=== PATIENT | male | born 1990 | race African-American/Black ===

== ENCOUNTER 2023-08-21 08:43 | Emergency (ER) | payer MEDICAID ==
[~2023-08-21] VITALS: Ht 175.3 cm; Wt 122.5 kg
[2023-08-21 08:50] VITALS: TEMP 98.2; O2SAT 99
[2023-08-21] MEDS: MORPHINE SULFATE 4 MG/ML INJ (FOR IV/IM USE) IV ONE (09:33)
[2023-08-21 09:34] LABS: DIFFERENTIAL COMMENT 0; EOSINOPHILS % 2.1 % (0.0-5.0); HEMATOCRIT. 38.1 % (42.0-52.0); HEMOGLOBIN. 12.5 g/dL (14.0-18.0); MEAN CORPUSCULAR HEMOGLOBIN 25.3 pg (28.0-32.0); MEAN CORPUSCULAR HGB CONC 32.9 g/dL (31.0-37.0); MEAN PLATELET VOLUME 8.5 fl (7.4-10.4); MONOCYTES % 8.5 % (2.0-8.0); NEUTROPHILS % 53.4 % (40.0-76.0); PLATELET 131 x1000/uL (130-400); RED BLOOD CELL COUNT 4.94 mill/uL (4.7-6.1); RED CELL DISTRIBUTION WIDTH 17.9 % (11.6-14.6); WHITE BLOOD COUNT 4.9 x1000/uL (4.5-11.0)
[2023-08-21 09:42] LABS: CHLORIDE 106 mEq/L (98-107); POTASSIUM 4.8 mEq/L (3.5-5.1); SODIUM 139 mEq/L (136-145)
[2023-08-21 09:43] LABS: CARBON DIOXIDE 25 mEq/L (21-32)
[2023-08-21 09:44] LABS: CALCIUM 9.5 mg/dL (8.7-10.4)
[2023-08-21] MEDS: HYDROMORPHONE HCL/PF 2MG/ML CPJ IV ONE (09:45)
[2023-08-21] MEDS ORDERED: HYDROMORPHONE HCL/PF 2MG/ML CPJ IV ONE (09:45)
[2023-08-21 09:48] LABS: CREATININE 0.8 mg/dL (0.6-1.3); GLUCOSE 102 mg/dL (70-105)
[2023-08-21 09:49] LABS: UREA NITROGEN BLOOD 8 mg/dL (9-23)
[2023-08-21 09:50] LABS: TROPONIN I HIGH SENSITIVITY 4 ng/L (3.0-53)
[2023-08-21] MEDS: SODIUM CHLORIDE 0.9% 1,000 ML IV ONE (10:23)
[2023-08-21] MEDS: DIPHENHYDRAMINE 50MG/ML VIAL IV ONE (10:23)
[2023-08-21 10:59] VITALS: BP 172/128; PULSE 76; RESP 15
== END 2023-08-21 11:35 | disposition home or self-care (01) ==
LOC: ER 08:43
DX: D57.00 Hb-SS disease with crisis, unspecified (principal); I49.9 Cardiac arrhythmia, unspecified; Z98.890 Other specified postprocedural states; Z88.8 Allergy status to other drugs, medicaments and biological substances; Z88.5 Allergy status to narcotic agent
CPT/HCPCS: 99285; 96374; 96375; 71045; 96361; 80048; 85025; 85044; 86850; 86900; 86901; 84484; 36415; 93005; J1200; J1170; J2270; J7030

== ENCOUNTER 2023-11-03 11:27 | Emergency (ER) | payer MEDICAID ==
[~2023-11-03] VITALS: Ht 175.3 cm; Wt 122.0 kg
[2023-11-03 11:36] VITALS: PULSE 82
[2023-11-03 11:38] VITALS: BP 171/123; RESP 16; TEMP 98.3; O2SAT 100
[2023-11-03 12:10] LABS: BASOPHILS % 0.7 % (0.0-2.0); DIFFERENTIAL COMMENT 0; EOSINOPHILS % 2.3 % (0.0-5.0); HEMATOCRIT. 37.9 % (42.0-52.0); LYMPHOCYTES % 36.3 % (20.0-50.0); MEAN CORPUSCULAR HEMOGLOBIN 24.6 pg (28.0-32.0); MEAN CORPUSCULAR HGB CONC 31.7 g/dL (31.0-37.0); MEAN CORPUSCULAR VOLUME 77.8 fL (80.0-94.0); MEAN PLATELET VOLUME 8.6 fl (7.4-10.4); MONOCYTES % 6.7 % (2.0-8.0); PLATELET 114 x1000/uL (130-400); RED BLOOD CELL COUNT 4.87 mill/uL (4.7-6.1); RED CELL DISTRIBUTION WIDTH 18.6 % (11.6-14.6); WHITE BLOOD COUNT 4.6 x1000/uL (4.5-11.0)
[2023-11-03 12:21] LABS: CHLORIDE 110 mEq/L (98-107); POTASSIUM 3.7 mEq/L (3.5-5.1); SODIUM 140 mEq/L (136-145)
[2023-11-03 12:22] LABS: CARBON DIOXIDE 26 mEq/L (21-32)
[2023-11-03 12:27] LABS: CREATININE 0.8 mg/dL (0.6-1.3); GLUCOSE 127 mg/dL (70-105); UREA NITROGEN BLOOD 6 mg/dL (9-23)
[2023-11-03] MEDS ORDERED: MORPHINE SULFATE 4 MG/ML INJ (FOR IV/IM USE) IV STA (15:26)
[2023-11-03] MEDS ORDERED: ONDANSETRON HCL 4MG/2ML INJ IV STA (15:26)
[2023-11-03] MEDS ORDERED: SODIUM CHLORIDE 0.9% 1,000 ML IV ONE (15:30)
[2023-11-03] MEDS ORDERED: HYDRALAZINE 20MG/ML VIAL IV ONE (15:30)
== END 2023-11-03 15:41 | disposition left against medical advice (07) ==
LOC: ER 11:27
DX: D57.819 Other sickle-cell disorders with crisis, unspecified (principal); I10 Essential (primary) hypertension; Z98.890 Other specified postprocedural states; Z88.8 Allergy status to other drugs, medicaments and biological substances; Z88.6 Allergy status to analgesic agent
CPT/HCPCS: 99283; 80048; 85025; 85044; 36415; J7030

== ENCOUNTER 2023-12-28 10:40 | Emergency (ER) | payer MEDICAID ==
[~2023-12-28] VITALS: Ht 182.9 cm; Wt 130.0 kg
[2023-12-28 10:47] VITALS: O2SAT 99
[2023-12-28] MEDS: DEXT 5%/0.45% NACL 1000ML 1,000 ML IV ONE (11:00)
[2023-12-28 11:29] LABS: BASOPHILS % 0.9 % (0.0-2.0); DIFFERENTIAL COMMENT 0; EOSINOPHILS % 1.7 % (0.0-5.0); HEMATOCRIT. 37.2 % (42.0-52.0); HEMOGLOBIN. 11.8 g/dL (14.0-18.0); LYMPHOCYTES % 33.1 % (20.0-50.0); MEAN CORPUSCULAR HEMOGLOBIN 23.8 pg (28.0-32.0); MEAN CORPUSCULAR HGB CONC 31.8 g/dL (31.0-37.0); MEAN PLATELET VOLUME 8.5 fl (7.4-10.4); NEUTROPHILS % 57.3 % (40.0-76.0); PLATELET 118 x1000/uL (130-400); RED BLOOD CELL COUNT 4.96 mill/uL (4.7-6.1); RED CELL DISTRIBUTION WIDTH 19.6 % (11.6-14.6); WHITE BLOOD COUNT 4.8 x1000/uL (4.5-11.0)
[2023-12-28 11:36] LABS: CHLORIDE 106 mEq/L (98-107); SODIUM 138 mEq/L (136-145)
[2023-12-28 11:37] LABS: CALCIUM 9.8 mg/dL (8.7-10.4); CARBON DIOXIDE 27 mEq/L (21-32)
[2023-12-28 11:42] LABS: CREATININE 0.8 mg/dL (0.6-1.3); GLUCOSE 101 mg/dL (70-105); UREA NITROGEN BLOOD 6 mg/dL (9-23)
[2023-12-28 11:44] LABS: ALANINE AMINOTRANSFERASE 22 IU/L (10-49); ALBUMIN 4.7 g/dL (3.2-4.8); ASPARTATE AMINOTRANSFERASE 29 IU/L (<34); BILIRUBIN TOTAL 0.9 mg/dL (0.1-1.0)
[2023-12-28 11:45] LABS: PROTEIN TOTAL 8.2 g/dL (6.0-8.3)
[2023-12-28] MEDS: HYDROMORPHONE HCL/PF 2MG/ML INJ IV ONE (12:39)
[2023-12-28] MEDS: DIPHENHYDRAMINE 50MG/ML VIAL IV ONE (12:39)
[2023-12-28] MEDS: HYDROMORPHONE HCL/PF 1MG/ML INJ IV NR ×3 (13:24→13:50)
[2023-12-28] MEDS ORDERED: HYDROMORPHONE HCL/PF 2MG/ML INJ IV ONE (13:30)
[2023-12-28 14:53] VITALS: BP 148/88; PULSE 70; RESP 15; TEMP 36.78072; O2SAT 99
== END 2023-12-28 15:02 | disposition home or self-care (01) ==
LOC: ER 10:40
DX: D57.00 Hb-SS disease with crisis, unspecified (principal); M25.551 Pain in right hip; Z88.8 Allergy status to other drugs, medicaments and biological substances; Z88.5 Allergy status to narcotic agent; Z88.6 Allergy status to analgesic agent; Z98.890 Other specified postprocedural states
CPT/HCPCS: 80053; 85025; 85044; 86850; 86900; 86901; 36415; 73502; 96361; 96374; 96375; 96376; 99284; J1200; J1170; Z7610 ×2

== ENCOUNTER 2023-12-29 13:59 | Emergency (ER) | payer MEDICAID ==
[~2023-12-29] VITALS: Ht 175.3 cm; Wt 122.0 kg
[2023-12-29 14:04] VITALS: TEMP 98.4; O2SAT 99
[2023-12-29 14:05] VITALS: O2SAT 99
[2023-12-29] MEDS: DEXT 5%/0.45% NACL 1000ML 1,000 ML IV ONE (14:30)
[2023-12-29 14:39] LABS: BASOPHILS % 0.5 % (0.0-2.0); DIFFERENTIAL COMMENT 0; EOSINOPHILS % 2.1 % (0.0-5.0); HEMATOCRIT. 37.2 % (42.0-52.0); HEMOGLOBIN. 11.7 g/dL (14.0-18.0); LYMPHOCYTES % 31.7 % (20.0-50.0); MEAN CORPUSCULAR HEMOGLOBIN 23.7 pg (28.0-32.0); MEAN CORPUSCULAR HGB CONC 31.5 g/dL (31.0-37.0); MEAN CORPUSCULAR VOLUME 75.1 fL (80.0-94.0); MEAN PLATELET VOLUME 8.7 fl (7.4-10.4); MONOCYTES % 5.6 % (2.0-8.0); NEUTROPHILS % 60.1 % (40.0-76.0); PLATELET 118 x1000/uL (130-400); RED BLOOD CELL COUNT 4.96 mill/uL (4.7-6.1); RED CELL DISTRIBUTION WIDTH 20.4 % (11.6-14.6); WHITE BLOOD COUNT 4.5 x1000/uL (4.5-11.0)
[2023-12-29 14:44] LABS: CHLORIDE 106 mEq/L (98-107); POTASSIUM 3.5 mEq/L (3.5-5.1); SODIUM 139 mEq/L (136-145)
[2023-12-29 14:45] LABS: CARBON DIOXIDE 25 mEq/L (21-32)
[2023-12-29 14:46] LABS: CALCIUM 9.3 mg/dL (8.7-10.4)
[2023-12-29 14:50] LABS: CREATININE 0.9 mg/dL (0.6-1.3); GLUCOSE 154 mg/dL (70-105)
[2023-12-29 14:51] LABS: UREA NITROGEN BLOOD 7 mg/dL (9-23)
[2023-12-29] MEDS: DIPHENHYDRAMINE 50MG/ML VIAL IV SCH (17:30)
[2023-12-29] MEDS: DIPHENHYDRAMINE 50MG/ML VIAL IV ONE (17:44)
[2023-12-29 17:45] VITALS: BP 159/104; PULSE 96; RESP 16
[2023-12-29] MEDS: HYDROMORPHONE HCL/PF 2MG/ML INJ IV ONE (17:45)
[2023-12-30] MEDS ORDERED: HYDR500C18 PO (13:09)
== END 2023-12-29 18:11 | disposition admitted as inpatient to this hospital (09) ==
LOC: ER 13:59 → EDBEDREQ 14:34 → ER 18:11
DX: D57.00 Hb-SS disease with crisis, unspecified (principal); M25.551 Pain in right hip; Z98.890 Other specified postprocedural states; Z88.5 Allergy status to narcotic agent; Z88.8 Allergy status to other drugs, medicaments and biological substances
CPT/HCPCS: 99284; 96374; 96361; 96375; 80048; 85025; 36415; 93005; J1200; J1170

== ENCOUNTER 2023-12-30 10:20 | Emergency (ER) | payer MEDICAID ==
[~2023-12-30] VITALS: Ht 180.3 cm; Wt 122.4 kg
[2023-12-30 10:38] VITALS: O2SAT 99
[2023-12-30 10:57] LABS: BASOPHILS % 0.8 % (0.0-2.0); DIFFERENTIAL COMMENT 0; EOSINOPHILS % 2.2 % (0.0-5.0); HEMATOCRIT. 34.8 % (42.0-52.0); HEMOGLOBIN. 11.2 g/dL (14.0-18.0); LYMPHOCYTES % 39.9 % (20.0-50.0); MEAN CORPUSCULAR HEMOGLOBIN 24.1 pg (28.0-32.0); MEAN CORPUSCULAR HGB CONC 32.2 g/dL (31.0-37.0); MEAN CORPUSCULAR VOLUME 74.6 fL (80.0-94.0); MEAN PLATELET VOLUME 8.3 fl (7.4-10.4); MONOCYTES % 7.6 % (2.0-8.0); NEUTROPHILS % 49.5 % (40.0-76.0); PLATELET 121 x1000/uL (130-400); RED BLOOD CELL COUNT 4.66 mill/uL (4.7-6.1); RED CELL DISTRIBUTION WIDTH 19.5 % (11.6-14.6)
[2023-12-30 11:10] LABS: CHLORIDE 109 mEq/L (98-107); POTASSIUM 3.7 mEq/L (3.5-5.1); SODIUM 139 mEq/L (136-145)
[2023-12-30 11:11] LABS: CALCIUM 9.1 mg/dL (8.7-10.4); CARBON DIOXIDE 26 mEq/L (21-32)
[2023-12-30 11:16] LABS: CREATININE 0.8 mg/dL (0.6-1.3); GLUCOSE 96 mg/dL (70-105); UREA NITROGEN BLOOD 7 mg/dL (9-23)
[2023-12-30 11:17] LABS: TROPONIN I HIGH SENSITIVITY 4 ng/L (3.0-53)
[2023-12-30 11:40] LABS: LACTATE DEHYDROGENASE 236 IU/L (120-246)
[2023-12-30] MEDS: DIPHENHYDRAMINE 50MG/ML VIAL IV ONE ×2 (12:41→14:04)
[2023-12-30] MEDS: HYDROMORPHONE HCL/PF 2MG/ML INJ IV ONE (12:41)
[2023-12-30] MEDS ORDERED: HYDR500C18 PO (13:09)
[2023-12-30] MEDS ORDERED: HYDROMORPHONE HCL/PF 2MG/ML INJ IV ONE (13:30)
[2023-12-30] MEDS: HYDROMORPHONE HCL/PF 1MG/ML INJ IV NR (14:04)
[2023-12-30] MEDS ORDERED: DOCUSATE SODIUM 100MG CAPSULE PO PRN (14:30)
[2023-12-30] MEDS ORDERED: IPRATROPIUM/ALBUTEROL 0.5-3(2.5)MG/3ML NEB HHN PRN (14:30)
[2023-12-30] MEDS ORDERED: CLONIDINE 0.1MG TABLET PO PRN (14:30)
[2023-12-30] MEDS ORDERED: GUAIFENESIN 200MG/10ML SUGAR FREE UDC PO PRN (14:30)
[2023-12-30] MEDS ORDERED: MAGNESIUM/ALUMINUM HYDROXIDE/SIMETHICONE 30ML UDC PO PRN (14:30)
[2023-12-30] MEDS ORDERED: SODIUM CHLORIDE 0.9% 500 ML IV ONE (14:30)
[2023-12-30] MEDS ORDERED: KETOROLAC 15MG/ML VIAL IV PRN (14:30)
[2023-12-30] MEDS ORDERED: ONDANSETRON HCL 4MG/2ML INJ IV PRN (14:30)
[2023-12-30] MEDS ORDERED: ACETAMINOPHEN 325MG TABLET PO PRN (14:45)
[2023-12-30] MEDS ORDERED: NALOXONE HCL 0.4MG/ML VIAL IV PRN (15:00)
[2023-12-30] MEDS: SODIUM CHLORIDE 0.9% 1,000 ML IV SCH (15:17)
[2023-12-30 15:19] LABS: CLARITY URINE CLEAR (CLEAR); COLOR URINE YELLOW (YELLOW); GLUCOSE URINE NEGATIVE (NEGATIVE); KETONES URINE NEGATIVE (NEGATIVE); LEUKOCYTE ESTERASE URINE NEGATIVE (NEGATIVE); NITRITE URINE NEGATIVE (NEGATIVE); OCCULT BLOOD URINE NEGATIVE (NEGATIVE); PROTEIN URINE 1+ (NEGATIVE); SPECIFIC GRAVITY URINE 1.011 (1.005-1.030); UROBILINOGEN URINE 0.2 E.U./dL (0.2-1.0)
[2023-12-30 15:36] LABS: *AMPHETAMINES SCREEN URINE NEGATIVE (NEGATIVE); *BARBITURATES SCREEN URINE NEGATIVE (NEGATIVE); *BENZODIAZEPINES SCREEN URINE NEGATIVE (NEGATIVE); *COCAINE SCREEN URINE NEGATIVE (NEGATIVE); CANNABINOID URINE SCREEN NEGATIVE (NEGATIVE); ECSTASY MDMA SCREEN URINE NEGATIVE (NEGATIVE); METHADONE URINE SCREEN NEGATIVE (NEGATIVE); OPIATES URINE SCREEN PRESUMPTIVE POSITIVE (NEGATIVE); PHENCYCLIDINE URINE SCREEN NEGATIVE (NEGATIVE)
[2023-12-30 16:11] LABS: BACTERIA URINE 2+; RBC URINE NONE SEEN /hpf (0-2); SQUAMOUS EPITHELIAL CELL URINE RARE /lpf (RARE/1+); WBC URINE 0-2 /hpf (0-2)
[2023-12-30 18:09] VITALS: BP 156/107; PULSE 77; RESP 14; TEMP 36.66960; O2SAT 99
[2023-12-30] MEDS: DIPHENHYDRAMINE 50MG/ML VIAL IV PRN (18:12)
[2023-12-30] MEDS: HYDROMORPHONE HCL/PF 1MG/ML INJ IV PRN (18:12)
[2023-12-30] MEDS ORDERED: ENOXAPARIN 30MG/0.3ML SYR SUBCUT SCH (21:00)
[2023-12-31] MEDS ORDERED: HYDROXYUREA 500MG CAPSULE PO SCH (09:00)
== END 2023-12-30 19:40 | disposition left against medical advice (07) ==
LOC: ER 10:20 → EDBEDREQ 11:13 → EDBEDREQTM 12:52 → EDBEDREQ 12:52 → ER 19:40
DX: D57.1 Sickle-cell disease without crisis (principal); Z88.3 Allergy status to other anti-infective agents; Z88.8 Allergy status to other drugs, medicaments and biological substances; Z88.5 Allergy status to narcotic agent; Z98.890 Other specified postprocedural states
CPT/HCPCS: 80305; 80048; 81003; 83615; 85025; 85044; 84484; 36415; 71045; 93970; 93005; 96361; 96374; 96375; 96376; 99285; J1200; J1170; Z7610

== ENCOUNTER 2024-01-01 02:55 | Emergency (ER) | payer MEDICAID ==
[~2024-01-01] VITALS: Ht 175.3 cm; Wt 123.0 kg
[~2024-01-01 02:55] MED LIST: HYDR500C18 PO
[2024-01-01 03:48] LABS: BASOPHILS % 0.9 % (0.0-2.0); DIFFERENTIAL COMMENT 0; EOSINOPHILS % 2.8 % (0.0-5.0); HEMATOCRIT. 33.5 % (42.0-52.0); LYMPHOCYTES % 44.2 % (20.0-50.0); MEAN CORPUSCULAR HEMOGLOBIN 24.4 pg (28.0-32.0); MEAN CORPUSCULAR HGB CONC 32.9 g/dL (31.0-37.0); MEAN CORPUSCULAR VOLUME 74.3 fL (80.0-94.0); MEAN PLATELET VOLUME 8.4 fl (7.4-10.4); MONOCYTES % 5.3 % (2.0-8.0); NEUTROPHILS % 46.8 % (40.0-76.0); PLATELET 118 x1000/uL (130-400); RED BLOOD CELL COUNT 4.52 mill/uL (4.7-6.1); RED CELL DISTRIBUTION WIDTH 19.4 % (11.6-14.6); WHITE BLOOD COUNT 4.7 x1000/uL (4.5-11.0)
[2024-01-01 03:57] LABS: CHLORIDE 109 mEq/L (98-107); POTASSIUM 3.4 mEq/L (3.5-5.1); SODIUM 142 mEq/L (136-145)
[2024-01-01 03:58] LABS: CARBON DIOXIDE 26 mEq/L (21-32)
[2024-01-01 03:59] LABS: PROTHROMBIN TIME 11.1 sec (9.6-11.0)
[2024-01-01 04:02] LABS: CREATININE 0.9 mg/dL (0.6-1.3)
[2024-01-01] MEDS: DIPHENHYDRAMINE 50MG/ML VIAL IV ONE ×2 (04:02→04:16)
[2024-01-01] MEDS: SODIUM CHLORIDE 0.9% 1,000 ML IV ONE (04:02)
[2024-01-01] MEDS: ACETAMINOPHEN 1000MG/100ML 100 ML IV ONE (04:02)
[2024-01-01 04:03] LABS: GLUCOSE 136 mg/dL (70-105); UREA NITROGEN BLOOD 7 mg/dL (9-23)
[2024-01-01 04:04] LABS: ALANINE AMINOTRANSFERASE 17 IU/L (10-49)
[2024-01-01 04:05] LABS: ALBUMIN 4.3 g/dL (3.2-4.8); ASPARTATE AMINOTRANSFERASE 23 IU/L (<34); BILIRUBIN DIRECT 0.2 mg/dL (<=3.0); BILIRUBIN TOTAL 0.7 mg/dL (0.1-1.0); CREATINE KINASE 162 IU/L (46-171); PROTEIN TOTAL 7.1 g/dL (6.0-8.3)
[2024-01-01 04:10] LABS: ETHANOL BLOOD < 10 mg/dL (<10)
[2024-01-01] MEDS: SODIUM CHLORIDE 0.9% IV NR ×3 (04:30→06:25)
[2024-01-01] MEDS: HYDROMORPHONE IV NR ×3 (04:30→06:25)
[2024-01-01] MEDS: POTASSIUM CHLORIDE 20MEQ/PACKET PO NR (05:29)
[2024-01-01] MEDS ORDERED: MAGNESIUM/ALUMINUM HYDROXIDE/SIMETHICONE 30ML UDC PO PRN (06:15)
[2024-01-01] MEDS ORDERED: CLONIDINE 0.1MG TABLET PO PRN (06:15)
[2024-01-01] MEDS ORDERED: ACETAMINOPHEN 325MG TABLET PO PRN ×2 (06:15)
[2024-01-01] MEDS ORDERED: MORPHINE SULFATE 2 MG/ML INJ (NOT FOR IM USE) IV PRN (06:30)
[2024-01-01] MEDS ORDERED: HYDRALAZINE 20MG/ML VIAL IV PRN (06:30)
[2024-01-01] MEDS: SODIUM CHLORIDE 0.9% 1,000 ML IV SCH (06:41)
[2024-01-01] MEDS ORDERED: NALOXONE HCL 0.4MG/ML VIAL IV PRN (06:45)
[2024-01-01 07:30] VITALS: BP 149/98; PULSE 72; RESP 15; TEMP 37.00296; O2SAT 99
[2024-01-01] MEDS: PANTOPRAZOLE 40MG DR TABLET PO SCH (07:50)
[2024-01-01] MEDS ORDERED: OMEPRAZOLE 20MG CAPSULE EXTENDED RELEASE PO SCH (07:50)
[2024-01-01] MEDS ORDERED: HYDROXYUREA 500MG CAPSULE PO SCH (09:00)
[2024-01-01] MEDS ORDERED: ENOXAPARIN 40MG/0.4ML SYR SUBCUT SCH (09:00)
[2024-01-01] MEDS ORDERED: AMLODIPINE 10MG TABLET PO SCH (09:00)
[2024-01-01 09:09] LABS: IRON 65 ug/dL (65-175)
[2024-01-01 09:12] LABS: TOTAL IRON BINDING CAPACITY 324 ug/dl (250-425)
[2024-01-01] MEDS ORDERED: GABAPENTIN 300MG CAPSULE PO SCH (14:00)
== END 2024-01-01 09:30 | disposition left against medical advice (07) ==
LOC: ER 03:06 → EDBEDREQTM 06:29 → EDBEDREQ 06:29 → ER 09:30 → CANBEDREQ 10:03
DX: D57.00 Hb-SS disease with crisis, unspecified (principal); I16.0 Hypertensive urgency; Z98.890 Other specified postprocedural states; Z88.6 Allergy status to analgesic agent; Z88.8 Allergy status to other drugs, medicaments and biological substances; Z88.5 Allergy status to narcotic agent; Z79.899 Other long term (current) drug therapy
CPT/HCPCS: 80076; 80048; 80320; 82550; 82728; 83036; 83540; 83550; 83690; 85025; 85044; 85610; 36415; 96368; 96365; 96366; 96375; 99285; J1200; J1170; J7050; J7030; Z7610 ×2; 96367; G0480; J0131

== ENCOUNTER 2024-01-03 14:16 | Emergency (ER) | payer MEDICAID ==
[~2024-01-03] VITALS: Ht 175.3 cm; Wt 122.0 kg
[2024-01-03 14:22] VITALS: O2SAT 100
[2024-01-03 14:26] VITALS: BP 167/112; PULSE 89; TEMP 36.89184; O2SAT 100
[2024-01-03] MEDS: DIPHENHYDRAMINE 50MG/ML VIAL IV ONE (16:15)
[2024-01-03] MEDS: SODIUM CHLORIDE 0.9% 1,000 ML IV ONE (16:15)
[2024-01-03] MEDS: HYDROMORPHONE HCL/PF 2MG/ML INJ IV ONE (16:15)
[2024-01-03 17:08] LABS: BASOPHILS % 0.8 % (0.0-2.0); DIFFERENTIAL COMMENT 0; EOSINOPHILS % 3.4 % (0.0-5.0); HEMATOCRIT. 35.4 % (42.0-52.0); HEMOGLOBIN. 11.1 g/dL (14.0-18.0); LYMPHOCYTES % 40.6 % (20.0-50.0); MEAN CORPUSCULAR HEMOGLOBIN 23.7 pg (28.0-32.0); MEAN CORPUSCULAR HGB CONC 31.3 g/dL (31.0-37.0); MEAN CORPUSCULAR VOLUME 75.6 fL (80.0-94.0); MEAN PLATELET VOLUME 8.8 fl (7.4-10.4); MONOCYTES % 7.9 % (2.0-8.0); NEUTROPHILS % 47.3 % (40.0-76.0); PLATELET 115 x1000/uL (130-400); RED BLOOD CELL COUNT 4.68 mill/uL (4.7-6.1); RED CELL DISTRIBUTION WIDTH 19.4 % (11.6-14.6); WHITE BLOOD COUNT 4.6 x1000/uL (4.5-11.0)
[2024-01-03 17:12] LABS: CHLORIDE 107 mEq/L (98-107); SODIUM 140 mEq/L (136-145)
[2024-01-03 17:13] LABS: CALCIUM 9.3 mg/dL (8.7-10.4); CARBON DIOXIDE 27 mEq/L (21-32)
[2024-01-03 17:18] LABS: CREATININE 0.9 mg/dL (0.6-1.3); GLUCOSE 107 mg/dL (70-105); UREA NITROGEN BLOOD 9 mg/dL (9-23)
[2024-01-03 17:20] LABS: ALANINE AMINOTRANSFERASE 16 IU/L (10-49); ALBUMIN 4.3 g/dL (3.2-4.8); ASPARTATE AMINOTRANSFERASE 24 IU/L (<34); BILIRUBIN TOTAL 0.7 mg/dL (0.1-1.0); PROTEIN TOTAL 7.4 g/dL (6.0-8.3)
[2024-01-03 19:30] VITALS: RESP 16
== END 2024-01-04 00:38 | disposition home or self-care (01) ==
LOC: ER 14:16
DX: D57.00 Hb-SS disease with crisis, unspecified (principal); Z98.890 Other specified postprocedural states; Z88.3 Allergy status to other anti-infective agents; Z88.4 Allergy status to anesthetic agent; Z88.6 Allergy status to analgesic agent; Z88.5 Allergy status to narcotic agent
CPT/HCPCS: 99284; 71045; 80053; 85025; 85044; 36415; J1200; J1170; J7030

== ENCOUNTER 2024-01-12 05:02 | Emergency (ER) | payer MEDICAID ==
[2024-01-12 05:37] VITALS: PULSE 118; O2SAT 99
== END 2024-01-12 06:08 | disposition left against medical advice (07) ==
LOC: ER 05:48
DX: D57.1 Sickle-cell disease without crisis (principal); Z53.21 Procedure and treatment not carried out due to patient leaving prior to being seen by health care provider

== ENCOUNTER 2024-01-13 12:24 | Emergency (ER) | payer MEDICAID ==
[~2024-01-13] VITALS: Ht 180.3 cm; Wt 123.0 kg
[2024-01-13 12:39] VITALS: BP 163/102; PULSE 93; RESP 18; TEMP 98.4; O2SAT 96
== END 2024-01-13 14:55 | disposition left against medical advice (07) ==
LOC: ER 12:24
DX: M79.604 Pain in right leg (principal); D57.1 Sickle-cell disease without crisis; Z88.5 Allergy status to narcotic agent; Z88.8 Allergy status to other drugs, medicaments and biological substances; Z98.890 Other specified postprocedural states
CPT/HCPCS: 93005; 99283

== ENCOUNTER 2024-01-27 06:24 | Emergency (ER) | payer MEDICAID ==
[~2024-01-27] VITALS: Ht 175.3 cm; Wt 123.0 kg
[2024-01-27 06:32] VITALS: BP 161/107; PULSE 90; RESP 20; TEMP 98.8; O2SAT 100
[2024-01-27] MEDS ORDERED: SODIUM CHLORIDE 0.9% 1,000 ML IV ONE (07:00)
[2024-01-27 07:31] LABS: BASOPHILS % 0.5 % (0.0-2.0); DIFFERENTIAL COMMENT 0; EOSINOPHILS % 2.6 % (0.0-5.0); HEMATOCRIT. 36.3 % (42.0-52.0); HEMOGLOBIN. 11.4 g/dL (14.0-18.0); LYMPHOCYTES % 29.4 % (20.0-50.0); MEAN CORPUSCULAR HEMOGLOBIN 23.4 pg (28.0-32.0); MEAN CORPUSCULAR HGB CONC 31.3 g/dL (31.0-37.0); MEAN CORPUSCULAR VOLUME 74.7 fL (80.0-94.0); MEAN PLATELET VOLUME 8.6 fl (7.4-10.4); MONOCYTES % 6.5 % (2.0-8.0); PLATELET 125 x1000/uL (130-400); RED BLOOD CELL COUNT 4.86 mill/uL (4.7-6.1); RED CELL DISTRIBUTION WIDTH 19.6 % (11.6-14.6); WHITE BLOOD COUNT 5.1 x1000/uL (4.5-11.0)
[2024-01-27 07:40] LABS: CARBON DIOXIDE 26 mEq/L (21-32); CHLORIDE 107 mEq/L (98-107); SODIUM 137 mEq/L (136-145)
[2024-01-27 07:41] LABS: CALCIUM 9.2 mg/dL (8.7-10.4)
[2024-01-27 07:46] LABS: CREATININE 0.8 mg/dL (0.6-1.3); GLUCOSE 104 mg/dL (70-105); UREA NITROGEN BLOOD 7 mg/dL (9-23)
[2024-01-27 07:47] LABS: ALANINE AMINOTRANSFERASE 23 IU/L (10-49); ALBUMIN 4.2 g/dL (3.2-4.8); ASPARTATE AMINOTRANSFERASE 29 IU/L (<34); PROTHROMBIN TIME 11.2 sec (9.6-11.0)
[2024-01-27 07:48] LABS: BILIRUBIN DIRECT 0.3 mg/dL (<=3.0)
[2024-01-27 09:53] LABS: SICKLE CELL SCREEN POSITIVE (NEGATIVE)
== END 2024-01-27 07:56 | disposition home or self-care (01) ==
LOC: ER 06:24
DX: R10.9 Unspecified abdominal pain (principal); D57.1 Sickle-cell disease without crisis; Z88.5 Allergy status to narcotic agent; Z79.64 Long term (current) use of myelosuppressive agent
CPT/HCPCS: 99283; 80076; 80048; 85660; 85025; 85044; 85610; 86850; 86900; 86901; 36415; J7030